=== PATIENT | female | born 1985 | race Two or more races ===

== ENCOUNTER 2020-03-29 05:40 | Day surgery (SDC) | payer OTHER | END 2020-03-29 13:10 | disposition home or self-care (01) | LOC: CIR.AMB 05:40 | PROVIDERS: ATTEND Specialist | DX: N92.1 Excessive and frequent menstruation with irregular cycle (principal) ==

== ENCOUNTER 2021-08-29 05:52 | Day surgery (SDC) | payer OTHER | END 2021-08-29 14:25 | disposition home or self-care (01) | LOC: CIR.AMB 05:52 | PROVIDERS: ATTEND Specialist | DX: Z30.2 Encounter for sterilization (principal); Z20.822 Contact with and (suspected) exposure to COVID-19 ==